=== PATIENT | male | born 1975 | race Hispanic/Latino ===

== ENCOUNTER 2017-05-09 08:48 | Day surgery (SDC) | payer BC ==
[2017-05-09] MEDS ORDERED: Lactated Ringer's 500 ML IV SCH (11:00)
[2017-05-09] MEDS ORDERED: Midazolam 2 MG/2 ML VIAL ONE (11:14)
[2017-05-09] MEDS ORDERED: Propofol 10 mg/ml Inj (20 ML) ONE (11:15)
[2017-05-09 12:20] VITALS: TEMP 97.9
[2017-05-09 12:41] VITALS: RESP 18; O2SAT 99
[2017-05-09 15:04] VITALS: BP 118/78; PULSE 73
== END 2017-05-09 14:25 | disposition home or self-care (01) ==
LOC: C.ENDO 08:48
PROVIDERS: ATTEND Internal Medicine Gastroenterology
DX: Z12.11 Encounter for screening for malignant neoplasm of colon (principal); D12.2 Benign neoplasm of ascending colon; Z80.0 Family history of malignant neoplasm of digestive organs; K64.1 Second degree hemorrhoids
CPT/HCPCS: 45380; 88305; J2250; J2704; J7120